=== PATIENT | male | born 1950 | race Caucasian/White ===

== ENCOUNTER 2016-12-08 12:05 | Emergency (ER) | payer OTHER ==
[~2016-12-08] VITALS: Ht 180.3 cm; Wt 122.2 kg
[~2016-12-08 12:05] MED LIST: ATEN100T PO; IBUP200T5 PO; LOSA1TAB17 PO
[2016-12-08] MEDS ORDERED: CEFTRIAXONE 1,000 MG IM ONE (12:30)
[2016-12-08] MEDS ORDERED: CEFTRIAXONE 1,000 MG ONE (13:00)
[2016-12-08 13:08] VITALS: BP 138/83
== END 2016-12-08 14:10 | disposition home or self-care (01) ==
LOC: ED 14:04
DX: L03.116 Cellulitis of left lower limb (principal); I10 Essential (primary) hypertension
CPT/HCPCS: 36415; 85025; 96372; 99283; J0696

== ENCOUNTER 2018-08-15 16:46 | Inpatient (IN) | payer MEDICARE, OTHER ==
[~2018-08-15] VITALS: Ht 180.3 cm; Wt 121.6 kg
[~2018-08-15 16:46] MED LIST changes: +IBUP-1484 PO; -IBUP200T5 PO; -LOSA1TAB17 PO; +LOSA1TAB22 PO
--- NOTE | 2018-08-15 17:01 | NUR ---
Pt wheeled to room with EDT.
--- NOTE | 2018-08-15 17:41 | NUR ---
Pt resting on gurney, remains on all monitors, pt hypertensive 193/83. Pt continues to deny any s/s.
[2018-08-15 17:52] LABS: BASOPHILS # (AUTO) 0.09 x10^3/uL (0-0.1); BASOPHILS % (AUTO) 1 % (0-1); EOSINOPHILS # (AUTO) 0.18 x10^3/uL (0-0.4); EOSINOPHILS % (AUTO) 2 % (1-7); LYMPHOCYTES # (AUTO) 2.35 x10^3/uL (1-3.4); LYMPHOCYTES % (AUTO) 27 % (22-44); MD NO; MEAN CORPUSCULAR HEMOGLOBIN 30.2 pg (27.5-34.5); MEAN CORPUSCULAR HGB CONC 33.7 g/dL (33.2-36.2); MEAN CORPUSCULAR VOLUME 89.8 fL (81-97); MEAN PLATELET VOLUME 10.2 fL (7.4-10.4); MONOCYTES # (AUTO) 0.86 x10^3/uL (0.2-0.8); MONOCYTES % (AUTO) 10 % (2-9); NEUTROPHILS # (AUTO) 5.31 x10^3/uL (1.8-6.8); NEUTROPHILS % (AUTO) 61 % (42-75); PLATELET COUNT 259 x10^3/uL (130-400); RED BLOOD COUNT 4.82 x10^6/uL (4.38-5.82); RED CELL DISTRIBUTION WIDTH 12.7 % (9.4-14.8)
[2018-08-15 18:07] LABS: ALBUMIN 4.4 g/dL (3.4-5.0); ANION GAP 6 mmol/L (5-15); CALCIUM 9.7 mg/dL (8.5-10.1); CHLORIDE 99 mmol/L (98-107)
[2018-08-15 18:10] LABS: CREATININE 0.76 mg/dL (0.7-1.3)
[2018-08-15] MEDS ORDERED: ENALAPRILAT 1.25 MG/ML, 2ML IV ONE (18:30)
[2018-08-15] MEDS ORDERED: ENALAPRILAT 1.25 MG/ML, 2ML ONE (18:33)
--- NOTE | 2018-08-15 18:46 | NUR ---
PIV started, pt medicated per OCT. Pt continues to be without complaint. Pt remains on monitors. Lowest HR noted is 39, pt is predominantly in the 50s to low 60s, in a 2nd degree Type 1 heart block. Addendum: 08/15/18 at 1927 by [email or web address] [address] Dr[address] Maxwell, rhythm is a high grade block with aflutter.
[2018-08-15 18:51] LABS: TROPONIN I < 0.015 ng/mL (0.000-0.045)
--- NOTE | 2018-08-15 19:00 | NUR ---
ASSUMED CARE FOR THIS PT.
--- NOTE | 2018-08-15 19:42 | NUR ---
REPORT CALLED TO FLOOR. PT READY TO GO.
--- NOTE | 2018-08-15 19:45 | NUR ---
PT UP TO BR WITHOUT ASSIST. PT WITH STEADY GATE
--- NOTE | 2018-08-15 19:52 | NUR ---
REPORT CALLED TO FLOOR. PT READY TO GO
[2018-08-15] MEDS ORDERED: LABETALOL 5MG/ML, 20ML IVPush PRN (20:00)
[2018-08-15] MEDS ORDERED: DEXTROSE 50%, 50ML SYRINGE IVPush PRN (20:00)
[2018-08-15] MEDS ORDERED: IBUPROFEN 600 MG TABLET PO PRN (20:00)
[2018-08-15] MEDS ORDERED: DEXTROSE 4 GM TAB.CHEW PO PRN (20:00)
[2018-08-15] MEDS ORDERED: hydrALAzine 20 MG/ML, 1ML IVPush PRN (20:00)
[2018-08-15] MEDS ORDERED: ACETAMINOPHEN 325 MG TABLET PO PRN (20:00)
[2018-08-15] MEDS ORDERED: ENOXAPARIN 40 MG/0.4 ML SQ SCH (20:00)
[2018-08-15] MEDS ORDERED: ENALAPRILAT 1.25 MG/ML, 2ML IVPush PRN (20:00)
[2018-08-15] MEDS ORDERED: GLUCAGON 1 MG IM PRN (20:00)
[2018-08-15 20:10] VITALS: BP 173/76
[2018-08-15] MEDS: SODIUM CHLORIDE FLUSH 10ML SYR IVF SCH (21:00)
[2018-08-15] MEDS ORDERED: MELATONIN 3 MG TABLET PO PRN (21:30)
[2018-08-15] MEDS ORDERED: IBUPROFEN 200 MG TABLET ONE (21:36)
[2018-08-15] MEDS: metFORMIN 500 MG TABLET PO SCH (21:42)
[2018-08-15 21:53] VITALS: BP 173/76
[2018-08-15] MEDS ORDERED: ACET-1600 PO (21:57)
[2018-08-15] MEDS ORDERED: ALPH50CA2 PO (22:00)
[2018-08-15] MEDS: INSULIN LISPRO 100 UNITS/ML, PEN SQ-INSULIN SCH (22:29)
[2018-08-16 01:51] LABS: TROPONIN I < 0.015 ng/mL (0.000-0.045)
[2018-08-16 02:04] VITALS: BP 157/72
[2018-08-16 05:22] LABS: BASOPHILS # (AUTO) 0.06 x10^3/uL (0-0.1); BASOPHILS % (AUTO) 1 % (0-1); EOSINOPHILS # (AUTO) 0.21 x10^3/uL (0-0.4); EOSINOPHILS % (AUTO) 2 % (1-7); LYMPHOCYTES # (AUTO) 1.71 x10^3/uL (1-3.4); LYMPHOCYTES % (AUTO) 20 % (22-44); MD NO; MEAN CORPUSCULAR HGB CONC 34.1 g/dL (33.2-36.2); MEAN CORPUSCULAR VOLUME 88.2 fL (81-97); MEAN PLATELET VOLUME 10.4 fL (7.4-10.4); MONOCYTES # (AUTO) 0.93 x10^3/uL (0.2-0.8); MONOCYTES % (AUTO) 11 % (2-9); NEUTROPHILS # (AUTO) 5.66 x10^3/uL (1.8-6.8); NEUTROPHILS % (AUTO) 66 % (42-75); PLATELET COUNT 220 x10^3/uL (130-400); RED BLOOD COUNT 4.44 x10^6/uL (4.38-5.82); RED CELL DISTRIBUTION WIDTH 12.7 % (9.4-14.8)
[2018-08-16 05:27] LABS: ANION GAP 8 mmol/L (5-15); CALCIUM 8.9 mg/dL (8.5-10.1); CHLORIDE 103 mmol/L (98-107)
[2018-08-16 05:29] LABS: CREATININE 0.75 mg/dL (0.7-1.3)
[2018-08-16 05:33] LABS: TROPONIN I < 0.015 ng/mL (0.000-0.045)
[2018-08-16] MEDS: INSULIN LISPRO 100 UNITS/ML, PEN SQ-INSULIN SCH ×2 (07:00→11:49)
[2018-08-16 08:19] LABS: T4 (THYROXINE) 9.5 mcg/dL (4.5-12.1)
[2018-08-16] MEDS: SODIUM CHLORIDE FLUSH 10ML SYR IVF SCH (08:28)
[2018-08-16] MEDS: metFORMIN 500 MG TABLET PO SCH ×2 (08:28→16:53)
[2018-08-16] MEDS ORDERED: HYDROCHLOROTHIAZIDE 25 MG TABLET PO SCH (09:00)
[2018-08-16] MEDS ORDERED: LOSARTAN 50MG TABLET PO SCH (09:00)
[2018-08-16 09:42] VITALS: BP 123/67
[2018-08-16 14:50] VITALS: BP 152/73
[2018-08-16 15:29] LABS: HEMOGLOBIN A1C 5.8 % (4.2-6.3)
[2018-08-16] MEDS ORDERED: RIVAROXABAN 20 MG TABLET ONE (16:46)
[2018-08-16] MEDS ORDERED: LEVOTHYROXINE 50 MCG TABLET PO ONE (17:00)
[2018-08-16] MEDS ORDERED: RIVA15TA PO (17:27)
[2018-08-16] MEDS ORDERED: LEVO50TA PO (17:27)
[2018-08-16] MEDS ORDERED: RIVA20TA PO (17:27)
[2018-08-17] MEDS ORDERED: LEVOTHYROXINE 50 MCG TABLET PO SCH (06:00)
== END 2018-08-16 18:06 | disposition home or self-care (01) | DRG 309 ==
LOC: ED 18:07 → EDIP 19:10 → 5SO 20:08
PROVIDERS: ADMIT Family Medicine; ATTEND Family Medicine
DX: I48.4 Atypical atrial flutter (principal); E87.1 Hypo-osmolality and hyponatremia; E03.9 Hypothyroidism, unspecified; E11.9 Type 2 diabetes mellitus without complications; F10.21 Alcohol dependence, in remission; F12.90 Cannabis use, unspecified, uncomplicated; I11.0 Hypertensive heart disease with heart failure; I48.91 Unspecified atrial fibrillation; I50.9 Heart failure, unspecified; Z79.84 Long term (current) use of oral hypoglycemic drugs; Z87.891 Personal history of nicotine dependence; Z88.7 Allergy status to serum and vaccine
CPT/HCPCS: 36415; 71045; 80048; 82040; 82962; 83036; 84436; 84443; 84481; 84484; 85025; 93005; 93306; 96374; G0378; J1650; J1815

== ENCOUNTER 2018-09-11 08:01 | Inpatient (IN) | payer MEDICARE ==
[2018-09-10 11:43] LABS: BASOPHILS # (AUTO) 0.03 x10^3/uL (0-0.1); BASOPHILS % (AUTO) 0 % (0-1); EOSINOPHILS # (AUTO) 0.11 x10^3/uL (0-0.4); EOSINOPHILS % (AUTO) 2 % (1-7); LYMPHOCYTES # (AUTO) 1.72 x10^3/uL (1-3.4); LYMPHOCYTES % (AUTO) 24 % (22-44); MD NO; MEAN CORPUSCULAR HEMOGLOBIN 30.1 pg (27.5-34.5); MEAN CORPUSCULAR HGB CONC 33.9 g/dL (33.2-36.2); MEAN CORPUSCULAR VOLUME 88.9 fL (81-97); MEAN PLATELET VOLUME 9.4 fL (7.4-10.4); MONOCYTES # (AUTO) 0.67 x10^3/uL (0.2-0.8); MONOCYTES % (AUTO) 9 % (2-9); NEUTROPHILS # (AUTO) 4.71 x10^3/uL (1.8-6.8); NEUTROPHILS % (AUTO) 65 % (42-75); PLATELET COUNT 269 x10^3/uL (130-400); RED BLOOD COUNT 4.82 x10^6/uL (4.38-5.82); RED CELL DISTRIBUTION WIDTH 13.3 % (9.4-14.8)
[2018-09-10 12:05] LABS: CHLORIDE 101 mmol/L (98-107)
[2018-09-10 12:15] LABS: ALANINE AMINOTRANSFERASE 51 U/L (12-78); ALBUMIN 4.2 g/dL (3.4-5.0); ALKALINE PHOSPHATASE 73 U/L (45-117); ANION GAP 7 mmol/L (5-15); BILIRUBIN,TOTAL 0.6 mg/dL (0.2-1.0); CALCIUM 9.8 mg/dL (8.5-10.1); CREATININE 0.78 mg/dL (0.7-1.3); TOTAL PROTEIN 7.8 g/dL (6.4-8.2)
[~2018-09-11] VITALS: Ht 180.3 cm; Wt 121.9 kg
[~2018-09-11 08:01] MED LIST changes: +ACET-1600 PO; +ALPH50CA2 PO; +LEVO50TA PO; +LEVO50TA5 PO; +RIVA15TA PO; +RIVA20TA PO
[2018-09-11] MEDS ORDERED: SODIUM CHLORIDE 0.9% 1,000 ML IV SCH (08:15)
[2018-09-11] MEDS: SODIUM CHLORIDE 0.9% 1,000 ML IV SCH ×3 (08:15→16:51)
[2018-09-11] MEDS ORDERED: SODIUM CHLORIDE 0.9% 1,000 ML IV ONE (08:30)
[2018-09-11] MEDS ORDERED: DOXY25TA45 PO (08:32)
[2018-09-11] MEDS ORDERED: METF500T17 PO (08:32)
[2018-09-11] MEDS ORDERED: MELA5TAB19 PO (08:32)
[2018-09-11] MEDS ORDERED: TRYP500C PO (08:32)
[2018-09-11] MEDS ORDERED: VALE450C2 PO (08:32)
[2018-09-11] MEDS ORDERED: MIDAZOLAM 1 MG/ML, 2ML ONE (09:47)
[2018-09-11] MEDS ORDERED: FENTANYL PF 250 MCG/5ML ONE (09:47)
[2018-09-11] MEDS ORDERED: ROCURONIUM 10MG/ML,5ML ONE (09:49)
[2018-09-11] MEDS ORDERED: SUCCINYLCHOLINE 20 MG/ML, 10ML ONE (09:50)
[2018-09-11] MEDS ORDERED: ONDANSETRON 2MG/ML, 2ML ONE (09:51)
[2018-09-11] MEDS ORDERED: DEXAMETHASONE 4 MG/ML, 1ML ONE (09:51)
[2018-09-11] MEDS ORDERED: PROPOFOL 10 MG/ML, 20ML ONE (09:51)
[2018-09-11] MEDS ORDERED: BUPIVACAINE 0.25% ONE (09:55)
[2018-09-11] MEDS ORDERED: CEFAZOLIN 1,000 MG ONE (09:55)
[2018-09-11] MEDS ORDERED: ADENOSINE 6 MG/2 ML ONE (09:55)
[2018-09-11] MEDS ORDERED: ISOPROTERENOL 0.2MG/ML, 5ML ONE (09:55)
[2018-09-11] MEDS ORDERED: HEPARIN 1,000 UNITS/ML, 10ML ONE (11:32)
[2018-09-11] MEDS ORDERED: PROTAMINE SULFATE 10 MG/ML, 5ML ONE (13:45)
[2018-09-11] MEDS ORDERED: ACETAMINOPHEN 325 MG TABLET PO PRN ×2 (14:00→14:30)
[2018-09-11] MEDS ORDERED: ZOLPIDEM 5MG TABLET PO PRN (14:00)
[2018-09-11] MEDS ORDERED: ACETAMINOPHEN 500 MG TABLET PO PRN (14:00)
[2018-09-11] MEDS ORDERED: RIVAROXABAN 20 MG TABLET ONE (14:07)
[2018-09-11] MEDS ORDERED: HALOPERIDOL 5 MG/ML IV PRN (14:30)
[2018-09-11] MEDS ORDERED: HYDROmorphone 2 MG/ML, 1ML IVPush PRN (14:30)
[2018-09-11] MEDS ORDERED: MIDAZOLAM 1 MG/ML, 2ML IV PRN (14:30)
[2018-09-11] MEDS ORDERED: PROMETHAZINE 25 MG/ML, 1ML IV PRN (14:30)
[2018-09-11] MEDS ORDERED: hydrALAzine 20 MG/ML, 1ML IV PRN (14:30)
[2018-09-11] MEDS ORDERED: MORPHINE SULFATE 4 MG/ML, 1ML IVPush PRN (14:30)
[2018-09-11] MEDS ORDERED: ALBUTEROL SULFATE 2.5 MG/3 ML NPPB PRN (14:30)
[2018-09-11] MEDS ORDERED: ONDANSETRON ODT 8 MG PO PRN (14:30)
[2018-09-11] MEDS ORDERED: LABETALOL 5MG/ML, 20ML IV PRN (14:30)
[2018-09-11] MEDS ORDERED: ONDANSETRON 2MG/ML, 2ML IV PRN (14:30)
[2018-09-11] MEDS ORDERED: OXYcodone 5 MG/5 ML ORAL.SOL UDC PO PRN (14:30)
[2018-09-11] MEDS ORDERED: DIAZEPAM 5 MG/ML, 2ML IVPush PRN (14:30)
[2018-09-11] MEDS ORDERED: MEPERIDINE/PF 25MG/0.5ML IVPush PRN (14:30)
[2018-09-11] MEDS ORDERED: PROMETHAZINE 12.5 MG SUPP PR PRN (14:30)
[2018-09-11] MEDS ORDERED: FENTANYL PF 100 MCG/2ML IV PRN (14:30)
[2018-09-11] MEDS ORDERED: EPHEDRINE 50 MG/ML, 1ML IVPush PRN (14:30)
[2018-09-11] MEDS ORDERED: RIVAROXABAN 20 MG TABLET PO ONE (15:00)
[2018-09-11 15:41] VITALS: BP 110/65
[2018-09-11] MEDS ORDERED: CEFAZOLIN PMX 1GM/50ML 50 ML IVPB ONE (17:00)
[2018-09-11 20:09] VITALS: BP_SYST 107; BP_SYST 159; BP_DIAS 62; BP_DIAS 72
[2018-09-11] MEDS ORDERED: VALERIAN ROOT 450 MG PO SCH (21:00)
[2018-09-11] MEDS ORDERED: HYDROCHLOROTHIAZIDE 25 MG TABLET PO SCH (21:00)
[2018-09-11] MEDS ORDERED: TRYPTOPHAN 500 MG PO SCH (21:00)
[2018-09-11] MEDS ORDERED: TEMPLATE NON-FORMULARY MED. (Alpha Lipoic Acid** 50 MG) PO SCH (21:00)
[2018-09-11] MEDS ORDERED: LOSARTAN 50MG TABLET PO SCH (21:00)
[2018-09-11] MEDS ORDERED: ONDANSETRON 2MG/ML, 2ML IVPush PRN (22:00)
[2018-09-11] MEDS: MELATONIN 5 MG TABLET PO SCH (22:30)
[2018-09-11] MEDS: metFORMIN 500 MG TABLET PO SCH (22:30)
[2018-09-11] MEDS: DOXYLAMINE 25MG TABLET PO SCH (22:30)
[2018-09-12] MEDS: SODIUM CHLORIDE 0.9% 1,000 ML IV SCH ×7 (00:21→15:02)
[2018-09-12 01:56] VITALS: BP 104/61
[2018-09-12] MEDS: LEVOTHYROXINE 50 MCG TABLET PO SCH (06:35)
[2018-09-12] MEDS: metFORMIN 500 MG TABLET PO SCH ×2 (07:33→20:34)
[2018-09-12 07:40] VITALS: BP 101/66
[2018-09-12] MEDS: HYDROCHLOROTHIAZIDE 25 MG TABLET PO SCH (08:49)
[2018-09-12] MEDS: LOSARTAN 50MG TABLET PO SCH (08:50)
[2018-09-12] MEDS ORDERED: RIVAROXABAN 20 MG TABLET PO SCH (09:00)
[2018-09-12] MEDS ORDERED: LIDOCAINE 1%, 20ML ONE (10:40)
[2018-09-12] MEDS ORDERED: MIDAZOLAM 1 MG/ML, 5ML ONE (10:40)
[2018-09-12] MEDS ORDERED: CEFAZOLIN 1,000 MG ONE (10:40)
[2018-09-12] MEDS ORDERED: FENTANYL PF 100 MCG/2ML ONE (10:40)
[2018-09-12] MEDS ORDERED: DIPHENHYDRAMINE 50 MG/ML, 1ML ONE (12:51)
[2018-09-12] MEDS ORDERED: ACETAMINOPHEN 325 MG TABLET PO PRN (14:00)
[2018-09-12] MEDS ORDERED: HOLD MEDICATION MC PRN (14:00)
[2018-09-12 15:14] VITALS: BP 107/71
[2018-09-12 18:43] VITALS: BP 124/71
[2018-09-12] MEDS: CEFAZOLIN PMX 1GM/50ML 50 ML IVPB SCH (22:53)
[2018-09-12] MEDS: SODIUM CHLORIDE FLUSH 10ML SYR IVF SCH (22:53)
[2018-09-12] MEDS: MELATONIN 5 MG TABLET PO SCH (22:53)
[2018-09-12] MEDS: DOXYLAMINE 25MG TABLET PO SCH (22:54)
[2018-09-13] MEDS: SODIUM CHLORIDE 0.9% 1,000 ML IV SCH ×3 (00:51→07:53)
[2018-09-13 01:08] VITALS: BP 131/75
[2018-09-13] MEDS: LEVOTHYROXINE 50 MCG TABLET PO SCH (05:20)
[2018-09-13] MEDS: CEFAZOLIN PMX 1GM/50ML 50 ML IVPB SCH (05:20)
[2018-09-13 06:40] VITALS: BP 152/88
[2018-09-13] MEDS: HYDROCHLOROTHIAZIDE 25 MG TABLET PO SCH (07:52)
[2018-09-13] MEDS: metFORMIN 500 MG TABLET PO SCH (07:52)
[2018-09-13] MEDS: LOSARTAN 50MG TABLET PO SCH (07:52)
[2018-09-13] MEDS: SODIUM CHLORIDE FLUSH 10ML SYR IVF SCH (07:53)
[2018-09-13] MEDS ORDERED: RIVAROXABAN 20 MG TABLET PO STA (08:05)
[2018-09-13] MEDS ORDERED: RIVAROXABAN 20 MG TABLET ONE (08:09)
[2018-09-13] MEDS ORDERED: RIVAROXABAN 20 MG TABLET PO ONE (08:34)
[2018-09-13] MEDS ORDERED: METO25TA35 PO (10:15)
[2018-09-14] MEDS ORDERED: RIVAROXABAN 20 MG TABLET PO SCH (06:00)
== END 2018-09-13 11:42 | disposition home or self-care (01) | DRG 242 ==
LOC: CACL 08:01 → ORIP 13:59 → 5SO 15:28 → OBSVTOIN 09-12 08:54 → DCLOUNGE 09-13 11:20
PROVIDERS: ADMIT Internal Medicine Cardiovascular Disease; ATTEND Internal Medicine Cardiovascular Disease
PROC: 4A0234Z Measurement of Cardiac Electrical Activity, Percutaneous Approach (ICD-10-PCS; 2018-09-11)
PROC: 02K83ZZ Map Conduction Mechanism, Percutaneous Approach (ICD-10-PCS; 2018-09-11)
PROC: 02573ZK Destruction of Left Atrial Appendage, Percutaneous Approach (ICD-10-PCS; 2018-09-11)
PROC: 02583ZZ Destruction of Conduction Mechanism, Percutaneous Approach (ICD-10-PCS; principal; 2018-09-11 10:00)
PROC: 0JH606Z Insertion of Pacemaker, Dual Chamber into Chest Subcutaneous Tissue and Fascia, Open Approach (ICD-10-PCS; 2018-09-12)
PROC: 02H63JZ Insertion of Pacemaker Lead into Right Atrium, Percutaneous Approach (ICD-10-PCS; 2018-09-12)
PROC: 02HK3JZ Insertion of Pacemaker Lead into Right Ventricle, Percutaneous Approach (ICD-10-PCS; 2018-09-12)
DX: I49.5 Sick sinus syndrome (principal); J96.00 Acute respiratory failure, unspecified whether with hypoxia or hypercapnia; I48.92 Unspecified atrial flutter; I44.2 Atrioventricular block, complete; D68.69 Other thrombophilia; I48.91 Unspecified atrial fibrillation; E03.9 Hypothyroidism, unspecified; E11.9 Type 2 diabetes mellitus without complications; E66.9 Obesity, unspecified; R55 Syncope and collapse; I10 Essential (primary) hypertension; Z87.891 Personal history of nicotine dependence; Z68.37 Body mass index [BMI] 37.0-37.9, adult
CPT/HCPCS: 33208; 36415; 71045; 71046; 80053; 82962; 85025; 85347; 93308; 93312; 93321; 93325; 93613; 93655; 93656; 93662; 99156; 99157; C1732; C1760; C1766; C1779; C1785; C1892; C1894; G0378; J0153; J0690; J1100; J1644; J2250; J2405; J2704; J2720; J3010; J3490; C1730; C1759; J0330; J1200; J7030

== ENCOUNTER → 2019-10-27 | Outpatient (CLI) | payer MEDICARE ==
[~2019-10-27] MED LIST changes: +DOXY25TA45 PO; -IBUP-1484 PO; +IBUP-1902 PO; +MELA5TAB14 PO; +METF500T17 PO; +METO25TA35 PO; +REGADENOSON 0.4 MG/5 ML SYRINGE ONE; +TRYP500C PO; +VALE450C2 PO
== END | disposition home or self-care (01) ==
LOC: CFH 08:27
PROVIDERS: ATTEND Internal Medicine Cardiovascular Disease
DX: I11.9 Hypertensive heart disease without heart failure (principal); I48.4 Atypical atrial flutter
CPT/HCPCS: 78452; 93017; A9502; J2785

== ENCOUNTER → 2020-05-02 | Outpatient (CLI) | payer MEDICARE ==
[~2020-05-02] MED LIST changes: -REGADENOSON 0.4 MG/5 ML SYRINGE ONE
== END | disposition home or self-care (01) ==
LOC: CVU 12:03
PROVIDERS: ATTEND Internal Medicine Cardiovascular Disease
DX: I08.0 Rheumatic disorders of both mitral and aortic valves (principal); I10 Essential (primary) hypertension; I48.0 Paroxysmal atrial fibrillation
CPT/HCPCS: 93306

== ENCOUNTER 2021-05-01 10:31 | Outpatient (CLI) | payer MEDICARE | END 2021-05-01 23:59 | disposition home or self-care (01) | LOC: CFH 10:31 | PROVIDERS: ATTEND Internal Medicine Cardiovascular Disease | DX: I08.3 Combined rheumatic disorders of mitral, aortic and tricuspid valves (principal); I11.9 Hypertensive heart disease without heart failure; I48.0 Paroxysmal atrial fibrillation | CPT/HCPCS: 93306 ==